=== PATIENT | female | born 1985 | race Caucasian/White ===

== ENCOUNTER 2021-06-02 09:13 | Emergency (ER) | payer BC ==
[~2021-06-02] VITALS: Ht 162.6 cm; Wt 124.2 kg
[2021-06-02 09:13] VITALS: BP 134/79
[2021-06-02] MEDS ORDERED: AMOX875T PO (09:47)
--- NOTE | 2021-06-02 09:47 | PHYS DOC ---
Adult General Chief Complaint Chief Complaint: EARACHE/EAR PAIN HPI HPI Patient is a 36-year-old female presents to the emergency department complaining of right ear pain that started last night while she was at work and progressively became worse, patient reports this morning when she got off work her pain increased to a 10 out of 10, she describes this as a stabbing pain. Patient states she had a sinus infection approximately a week to 10 days ago, was not treated with antibiotics, seem to resolve on its own. Patient does report feeling hot and feverish however did not take her temperature last night while she was at work. Patient denies taking medications for pain. Patient denies trying other nonpharmacological pain relief methods. Patient denies visual disturbances, denies throat pain nasal or chest congestion, denies cough, denies chest pains or shortness of breath. Patient denies nausea vomiting or abdominal discomfort. Patient reports her last menstrual cycle was over a year ago when she had her Mirena control placed. Patient denies other physical complaints or physical concerns. (DARRICK SANCHEZ APRN) Review of Systems Review of Systems 14 body systems of review of systems have been reviewed. See HPI for pertinent positives and negative responses, otherwise all other systems are negative, nonpertinent or noncontributory. Constitutional: Negative except as outlined in HPI above. Skin: Negative except as outlined in HPI above. Eyes: Negative except as outlined in HPI above. HENT: Negative except as outlined in HPI above. Respiratory: Negative except as outlined in HPI above. Cardiovascular: Negative except as outlined in HPI above. GI: Negative except as outlined in HPI above. : Negative except as outlined in HPI above. Musculoskeletal: Negative except as outlined in HPI above. Integument: Negative except as outlined in HPI above. Neurologic: Negative except as outlined in HPI above. Endocrine: Negative except as outlined in HPI above. Lymphatic: Negative except as outlined in HPI above. Psychiatric: Negative except as outlined in HPI above. (DARRICK SANCHEZ APRN) Physical Exam Physical Exam Constitutional: Well developed, well nourished, no acute distress, non-toxic appearance. Patient is holding right ear otherwise in no apparent distress. HENT: Normocephalic, atraumatic. Oropharynx moist, pink, no deep tissue infectious process appreciated, no postnasal drip appreciated, normal voice tones, left TM intact within normal limits, right TM bulging, white purulence behind TM, erythema around tympanic membrane borders, unable to appreciate bony landmarks, anterior cervical lymphadenopathy on the right, no other lymphadenopathy appreciated of the head or neck. Eyes: Conjunctiva normal, no discharge. Neck: Normal range of motion, no stridor. Cardiovascular: No cyanosis appreciated, distal cap refill less than 2 seconds. Regular rate and rhythm, heart sounds S1-S2. Lungs & Thorax: Patient is in no respiratory distress, no audible adventitious lung sounds appreciated. Lung sounds clear to auscultation all lung diaz. Abdomen: Nontender, no abnormalities noted. Skin: Warm, dry, no erythema, no rash. Back: No tenderness, no deformities. Extremities: No tenderness, no cyanosis, no clubbing, ROM intact, no edema. Neurologic: Alert and oriented X 3, normal motor function, normal sensory function, no focal deficits noted. Psychologic: Affect normal, judgement normal, mood normal. (DARRICK SANCHEZ APRN) EKG EKG [] (DARRICK SANCHEZ APRN) Radiology/Procedures Radiology/Procedures [] (DARRICK SANCHEZ APRN) Heart Score C/O Chest Pain: No Risk Factors: Risk Factors: DM, Current or recent (<one month) smoker, HTN, HLP, family history of CAD, obesity. Risk Scores: Risk Factors: DM, Current or recent (<one month) smoker, HTN, HLP, family history of CAD, obesity. (DARRICK SANCHEZ APRN) Course & Med Decision Making Course & Med Decision Making Pertinent Labs and Imaging studies reviewed. (See chart for details) 36-year-old female, vital signs reviewed, triage vital signs 98.0 oral temperature, blood pressure on the right upper extremity 134/74, pulse rate 90, oxygen saturation 98% on room air. Presents emergency department concerning right ear pain that started last night. Patient denies trauma to the ear, physical examination consistent with serous acute otitis media. Discussed findings with patient, will treat with pain medications in the ER, will prescribe 875 amoxicillin twice daily x5 days, strict follow-up with primary ca re this week, return to ER precautions and concerns were reviewed with patient, patient is amenable to ED discharge planning. Discussed with the patient all findings and diagnostic testing as well as the need to follow-up with their primary care provider for further evaluation and treatment or return to the ED if any new or worsening symptoms. Strict return precautions were also discussed at length, the patient voiced understanding and agreement with the discharge planning. The patient was nontoxic in appearance, in no apparent distress, and hemodynamically stable at the time of disposition. (DARRICK SANCHEZ APRN) Dragon Disclaimer Dragon Disclaimer This electronic medical record was generated, in whole or in part, using a voice recognition dictation system. (DARRICK SANCHEZ APRN) Attending Co-Sign The patient was seen and interviewed as well as examined at the bedside. The chart was reviewed. The case was discussed. Agree with the plan of care. (VIVI RENEE DO) Departure Departure: Impression: Primary Impression: Acute otitis media Disposition: HOME / SELF CARE / HOMELESS Condition: GOOD Referrals: PCP,REUBEN (PCP) Patient Instructions: Otitis Media, Adult Additional Instructions: You are seen today in the emergency department for right ear pain. Your examination is concerning for a middle ear infection. As we discussed I am starting you on an antibiotic amoxicillin that you will take twice a day for the next 5 days. Please use [id number] Tylenol and or Motrin for ongoing ear discomfort. Do not stick anything into your ear. Please follow-up with your primary care physician for reevaluation this week, if you do not have a primary care provider you may consider using the [facility] located at [facility] [place] [address] [place] [address], other telephone number is area code [phone], I encourage you to call today for an appointment to be seen soon. Thank you for visiting our Emergency Department. It was a pleasure taking care of you today in the emergency department and we appreciate you trusting us with your care. If any additional problems come up don't hesitate to return to visit us. Please follow up with your primary care provider so they can plan additional care if needed and know about the problem that you had. If symptoms worsen come back to the Emergency Department. Any concerning symptoms that start such as chest pain, shortness of air, weakness or numbness on one side of the body, running high fevers or any other concerning symptoms return to the ER. Scripts Amoxicillin (AMOXICILLIN) 875 Mg Tablet 1 TAB PO BID for AOM for 5 Days, #10 TAB 0 Refills Take 1 tablet by mouth twice a day for the next 5 days. Prov: DARRICK SANCHEZ APRN 06/02/21 Problem Qualifiers Primary Impression: Acute otitis media Otitis media type: suppurative Laterality: right Recurrence: non- recurrent Spontaneous tympanic membrane rupture: without spontaneous rupture Qualified Codes: H66.001 - Acute suppurative otitis media without spontaneous rupture of ear drum, right ear DARRICK SANCHEZ APRN Jun 02, 2021 09:47 VIVI RENEE DO Jun 03, 2021 11:22
[2021-06-02] MEDS ORDERED: HYDROcodone/APAP 5/325MG 1 TAB TABLET PO ONE (10:00)
[2021-06-02] MEDS ORDERED: IBUPROFEN 600 MG TABLET. PO ONE (10:00)
== END 2021-06-02 10:00 | disposition home or self-care (01) ==
LOC: ER 09:13
DX: H66.91 Otitis media, unspecified, right ear (principal)
CPT/HCPCS: 99283